=== PATIENT | male | born 1995 | race Caucasian/White ===

== ENCOUNTER 2017-03-09 04:21 | Emergency (ER) | payer OTHER ==
[2017-03-09 05:03] LABS: BASOPHIL % 0.4 % (0-2); PLATELET COUNT 246 x10^3mcL (130-400); RED CELL DISTRIBUTION WIDTH 13.1 % (11.5-14.5)
[2017-03-09 05:04] LABS: CALCIUM 9.7 mg/dL (8.5-10.1); CARBON DIOXIDE 32.5 mmol/L (21-32); CHLORIDE SERUM 102 mmol/L (98-107); GFR1 > 60 mL/min; GLUCOSE SERUM 112 mg/dL (74-106); POTASSIUM SERUM 3.4 mmol/L (3.5-5.1); SODIUM SERUM 142 mmol/L (136-145)
[2017-03-09 05:08] LABS: ALBUMIN 3.9 g/dL (3.4-5.0); ALKALINE PHOSPHATASE 82 U/L (46-116); ALT/SGPT 53 U/L (16-63); AST/SGOT 25 U/L (15-37); BILIRUBIN TOTAL 0.4 mg/dL (0.20-1.00); LIPASE 165 IU/L (73-393); TOTAL PROTEIN, SERUM 7.4 g/dL (6.4-8.2)
[2017-03-09 08:07] VITALS: BP 117/59
== END 2017-03-09 08:07 | disposition home or self-care (01) ==
LOC: ED 04:21
PROVIDERS: Emergency Medicine
DX: R10.10 Upper abdominal pain, unspecified (principal)
CPT/HCPCS: J0500; J1170; J2270; J2405; J7030

== ENCOUNTER 2017-06-22 11:09 | Inpatient (IN) | payer OTHER ==
[~2017-06-22] VITALS: Ht 182.9 cm; Wt 140.7 kg
--- NOTE | 2017-06-22 11:16 | NUR ---
DR. BOWEN AT BEDSIDE FOR MSE; PT IN ED WITH C/O EPIGASTRIC/LUQ ABD PAIN X30 MINUTES, PER PT DESCRIBED "SQUEEZING", PER PT WAS SEEN 2 MONTHS AGO FOR SIMILAR SYMPTOMS, PT IS AAO4, NO ACUTE DISTRESS, DENIES N/V/D
--- NOTE | 2017-06-22 11:30 | NUR ---
US AT BEDSIDE
--- NOTE | 2017-06-22 11:36 | NUR ---
ULTRASOUND AT [facility]./
--- NOTE | 2017-06-22 12:01 | NUR ---
LABS DRAWN, PT AAO4, NO ACUTE DISTRESS, PAIN RATED 5/10 AT THIS TIME
[2017-06-22 12:11] LABS: BASOPHIL % 0.7 % (0-2); PLATELET COUNT 231 x10^3mcL (130-400); RED CELL DISTRIBUTION WIDTH 13.3 % (11.5-14.5)
[2017-06-22 12:16] LABS: CALCIUM 8.6 mg/dL (8.5-10.1); CARBON DIOXIDE 32.6 mmol/L (21-32); CHLORIDE SERUM 104 mmol/L (98-107); CREATININE SERUM 0.9 mg/dL (0.7-1.3); GFR1 > 60 mL/min; GLUCOSE SERUM 97 mg/dL (74-106); POTASSIUM SERUM 4.3 mmol/L (3.5-5.1); SODIUM SERUM 139 mmol/L (136-145)
[2017-06-22 12:20] LABS: ALBUMIN 3.4 g/dL (3.4-5.0); ALKALINE PHOSPHATASE 60 U/L (46-116); ALT/SGPT 37 U/L (16-63); AST/SGOT 19 U/L (15-37); BILIRUBIN TOTAL 0.6 mg/dL (0.20-1.00); LIPASE 122 IU/L (73-393); TOTAL PROTEIN, SERUM 7.4 g/dL (6.4-8.2)
--- NOTE | 2017-06-22 13:50 | NUR ---
REPORT CALLED TO AMARILYS MOFFETT, SHE WILL ASSUME CARE PRIMARY RN POST TRASFNER
[2017-06-22 14:08] VITALS: BP 132/67
--- NOTE | 2017-06-22 14:13 | NUR ---
ORIENTED TO ROOM. CALL LIGHT WITHIN REACH. TELE 2 NSR 70. DENIES PAIN AND NAUSEA.
--- NOTE | 2017-06-22 14:15 | NUR ---
RECEIVED PATIENT FROM ED VIA GUERNEY, PATIENT ALERT AND ORIENTED, TELE # 2 SR, IV ACCESS TO RAC WNL, NO C/O PAIN AT THIS TIME, ORIENTED PATIENT TO ROOM AND SURROUNDINGS, BED IN LOW POSITION, BED RAILS UP X 2, CALL LIGHT WITHIN REACH, WILL ENDORSE CARE TO PRIMARY NURSE AMARILYS MOFFETT
[2017-06-22 15:09] LABS: CHOLESTEROL/HDL RATIO 4.2; MAGNESIUM 2.2 mg/dL (1.8-2.4); PHOSPHOROUS 3.4 mg/dL (2.5-4.9)
--- NOTE | 2017-06-22 15:11 | NUR ---
BACK FROM CT.
[2017-06-22 15:15] LABS: FREE T4 1.17 ng/dL (0.76-1.46); FREE THYROXINE INDEX 3.6 ug/dL (1.4-4.5); T4(THYROXINE) 9.8 ug/dL (4.7-13.3)
[2017-06-22 15:18] LABS: T3 TOTAL 1.47 ng/mL
--- NOTE | 2017-06-22 15:34 | NUR ---
IVF NS @ 100 INFUSING.
--- NOTE | 2017-06-22 15:58 | NUR ---
REQUESTING WATER. PAGED DR LASSITER FOR ORDER.
--- NOTE | 2017-06-22 16:25 | NUR ---
REPAGED DR LASSITER.
--- NOTE | 2017-06-22 16:36 | NUR ---
FAMILY REQUESTING TO SPEAK WITH DOCTOR, DR LASSITER MADE AWARE.
[2017-06-22 16:56] VITALS: BP 138/76
--- NOTE | 2017-06-22 17:55 | NUR ---
IVF DECREASED TO 50ML/HR.
--- NOTE | 2017-06-22 18:01 | NUR ---
REPORTS THAT HE TOLD THE ED DR THAT HE HAS BEEN TAKING MEDICINE FOR COLD AND FEVER. REQUESTING MEDICINE FOR THIS, BUT DOESN'T REMEMBER WHAT HE WAS TAKING AT HOME. MADE DR LASSITER AWARE.
--- NOTE | 2017-06-22 19:35 | NUR ---
PT AWAKE AND ALERT. AOX4. VERBAL WITH CLEAR SPEECH. ON ROOM AIR. NO S/S OF RESPIRATORY DISTRESS NOTED. LUNGS CLEAR BILATERALLY. ON TELE 2, NSR. DENIES ANY CHEST PAIN. ABD SOFT AND FLAT. BOWEL SOUNDS ACTIVE. LAST BM 06/22/17. SKIN WARM AND DRY. IV PATENT AND INFUSING WELL TO RIGHT AC PATENT AND INTACT. NO S/S OF INFECTION NOTED. DENIES ANY ABD DISCOMFORT OR PAIN AT THIS TIME. DENIES ANY NAUSEA. NO S/S OF DISTRESS NOTED. CALL LIGHT WITHIN REACH. WILL CONTINUE TO MONITOR.
--- NOTE | 2017-06-22 20:26 | NUR ---
PT REQUESTING TO SPEAK WITH DR REGARDING LAB RESULTS AND OVERALL CONDITION. DR. BROWNE NOTIFIED AND AWARE.
[2017-06-22 20:52] VITALS: BP 118/56
[2017-06-22 20:52] LABS: UA SPECIFIC GRAVITY 1.015 (1.005-1.035); microscopic required? YES; urine erythrocyte TRACE (NEGATIVE)
[2017-06-22 21:12] LABS: AMPHETAMINE QUAL UR NONE DETECTED (NEG <=1000)
--- NOTE | 2017-06-23 00:30 | NUR ---
PT RESTING IN BED WITH EYES CLOSED. BREATHING EQUAL AND UNLABORED. NO S/S OF RESPIRATORY DISTRESS NOTED. IV PATENT AND INFUSING WELL. RESTING COMFORTABLY WITH RELAXED FACIAL FEATURES. CALL LIGHT WITHIN REACH. WILL CONTINUE TO MONITOR.
[2017-06-23 05:33] VITALS: BP 125/62
--- NOTE | 2017-06-23 05:54 | NUR ---
PT SLEPT WELL THROUGHOUT THE NIGHT. AWAKE AND ALERT AT THIS TIME. NO S/S OF RESPIRATORY DISTRESS NOTED. DENIES ANY ABD PAIN OR DISCOMFORT AT THIS TIME. IV PATENT AND INFUSING WELL. NO S/S OF DISTRESS NOTED. CALL LIGHT WITHIN REACH. WILL CONTINUE TO MONITOR.
[2017-06-23 06:13] LABS: BASOPHIL % 0.4 % (0-2); PLATELET COUNT 226 x10^3mcL (130-400); RED CELL DISTRIBUTION WIDTH 13.4 % (11.5-14.5)
[2017-06-23 06:32] LABS: CALCIUM 8.7 mg/dL (8.5-10.1); CARBON DIOXIDE 30.4 mmol/L (21-32); CHLORIDE SERUM 104 mmol/L (98-107); GFR1 > 60 mL/min; GLUCOSE SERUM 85 mg/dL (74-106); MAGNESIUM 2.3 mg/dL (1.8-2.4); PHOSPHOROUS 3.7 mg/dL (2.5-4.9); POTASSIUM SERUM 4.1 mmol/L (3.5-5.1); SODIUM SERUM 139 mmol/L (136-145)
--- NOTE | 2017-06-23 07:35 | NUR ---
RECEIVED THE PATIENT AWAKE AND ORIENTED TO PERSON, PLACE AND TIME. DENIED SHORTNESS OF BREATH, NAUSEA/VOMITING OR PAIN. IVF NS VIA H/L TO RAC. TELE # 2 READS SINUS RHYTHMS WITH OCCASIONAL SINUS ARRHYTHMIA. CALL LIGHT WITHIN REACH. SIDE RAILS UP X2.
--- NOTE | 2017-06-23 09:00 | NUR ---
DR. DIAZ AND TEAM WERE MAKING ROUND TO SEE THE PATIENT. THE CARE PLAN WAS DISCUSSED WITH THE PATIENT. THE PATIENT AGREED WITH THE PLAN.
[2017-06-23 09:12] VITALS: BP 131/76
--- NOTE | 2017-06-23 10:13 | NUR ---
THE PATIENT WANTED TO LEAVE THE HOSPITAL AGAIN MEDICAL ADVICE (AMA) DUE TO SPECIAL COURSE HE NEEDS TO ATTEND THIS AFTERNOON. DR. COLBERT-RESIDENT WAS MADE AWARE AND CAME TO THE PATIENT ROOM TO EXPLAIN THE RISK OF AMA. THE PATIENT STILL WANTED TO SIGN OUT AMA. DOCTOR OBTAINED AMA FORM. THE CHARGE NURSE WAS AWARE OF THE PATIENT'S AMA. THE PATIENT IS WAITING FOR THE DOCTOR TO MAKE APPOINTMENT FOR HIM WITH HIS FAMILY DOCTOR BEFORE THE PATIENT LEAVE THE HOSPITAL.
== END 2017-06-23 11:00 | disposition left against medical advice (07) | DRG 241 ==
LOC: ED 11:09 → DU 13:20
PROVIDERS: Emergency Medicine; ADMIT Family Medicine
DX: K27.9 Peptic ulcer, site unspecified, unspecified as acute or chronic, without hemorrhage or perforation (principal); E43 Unspecified severe protein-calorie malnutrition; K21.9 Gastro-esophageal reflux disease without esophagitis; Z83.3 Family history of diabetes mellitus; Z68.41 Body mass index [BMI] 40.0-44.9, adult; E78.5 Hyperlipidemia, unspecified; E66.01 Morbid (severe) obesity due to excess calories
CPT/HCPCS: 83880; 84439; J1885; J3010; J7030; Q0092; Q0163; Q9967